=== PATIENT | male | born 1990 | race Caucasian/White ===

== ENCOUNTER 2023-04-17 23:30 | Emergency (ER) | payer OTHER ==
[~2023-04-17] VITALS: Ht 170.2 cm; Wt 79.8 kg
[2023-04-17 23:42] VITALS: BP 146/85; PULSE 88; RESP 20; TEMP 97; O2SAT 99
== END 2023-04-18 00:30 | disposition left against medical advice (07) ==
LOC: MED 23:30
DX: L02.512 Cutaneous abscess of left hand (principal); Z53.21 Procedure and treatment not carried out due to patient leaving prior to being seen by health care provider
CPT/HCPCS: 99281